=== PATIENT | female | born 1975 | race Caucasian/White ===

== ENCOUNTER 2016-08-01 04:26 | Emergency (ER) | payer BC ==
[2016-08-01 04:34] VITALS: BP 129/83
[2016-08-01] MEDS ORDERED: Tetan/Diph/Pertus SYR(Tdap)* 0.5 ML SYR(BOOSTRIX) use SYR IM ONE (05:08)
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
== END 2016-08-01 05:44 | disposition home or self-care (01) ==
LOC: ED 04:26
DX: S61.212A Laceration without foreign body of right middle finger without damage to nail, initial encounter (principal); W26.0XXA Contact with knife, initial encounter; Y93.9 Activity, unspecified; Y92.9 Unspecified place or not applicable; Y99.9 Unspecified external cause status
CPT/HCPCS: 90471; 90715; 99282

== ENCOUNTER 2016-09-16 18:34 | Emergency (ER) | payer BC ==
[2016-09-16] MEDS ORDERED: Glucagon* 1 MG VIAL IV ONE (19:00)
[2016-09-16] MEDS ORDERED: Midazolam* 1 MG/ML 10 ML VIAL (10 MG) ONE (19:59)
[2016-09-16] MEDS ORDERED: Meperidine SYRINGE* 50 MG/ML ONE (19:59)
[2016-09-16] MEDS ORDERED: Ondansetron INJ* 2 MG/ML VIAL IV ONE (21:53)
[2016-09-16] MEDS ORDERED: Ondansetron INJ* 2 MG/ML VIAL ONE (21:54)
[2016-09-16 22:36] VITALS: BP 111/72
--- NOTE | 2016-09-17 00:51 | CONS ---
CONSULTATION REPORT: DATE OF CONSULT: 09/16/16 REQUESTING PHYSICIAN: Emergency room. INDICATION: Esophageal foreign body. NARRATIVE: Ms. King is a 41-year-old female well known to our service. She has a history of numerous esophageal foreign bodies in the past. I believe this may be her 6th esophageal foreign body in the past year and a half. The patient was eating prime rib approximately an hour and a half to 2 hours ago when she noted that it became stuck at the bottom of her esophagus. She tried to drink some water and it came right back up on her. She now is bringing up her saliva, unable to swallow the saliva. She does have some substernal chest discomfort but not real pain. She denies any new medications. Previous endoscopies in the past have not revealed any obstructions nor rings. It does not appear that there has ever been a stricture or a ring. The patient does not have any teeth and it is felt that her foreign bodies continue to happen because she is edentulous. I have asked her numerous times to try and obtain some new teeth, she states that her jaw is too small to get fake teeth and she does not want them. PAST MEDICAL HISTORY: Significant for chronic headaches and chronic abdominal pain. PAST SURGICAL HISTORY: Surgeries include hysterectomy. FAMILY HISTORY: No esophageal malignancies. SOCIAL HISTORY: She denies any tobacco or alcohol. REVIEW OF SYSTEMS: Twelve systems were reviewed, other than that mentioned in the HPI were unremarkable. PHYSICAL EXAM: Temperature is 156/105, pulse is 81, respiratory rate of 18, O2 sat is 100%, temperature is 98.1. General: Well-appearing young female in no apparent distress. Alert, oriented, pleasant, fluent. HEENT: Mucous membranes are moist without lesions, ulcers, or exudates. Neck is supple. Trachea is midline. Teeth are absent. Heart: Regular rate and rhythm. Lungs : Clear to auscultation. Abdomen: Positive bowel sounds. Soft, nontender, nondistended. No hepatosplenomegaly, masses, rebound, or guarding. Skin is warm and dry. DIAGNOSTIC STUDIES/LAB DATA: None. ASSESSMENT AND PLAN: This is a pleasant 41-year-old female with an esophageal foreign body. She is unable to swallow her own saliva. I will make arrangements for an emergent endoscopy in the emergency room right now. I did have another long discussion with her regarding trying to obtain some fake teeth to try and prevent these episodes from occurring so frequently, I am not sure how compliant she will be with this. CC: Dr. Park; Dr. Cuello * [id number]/[facility] #: [id number] [facility]
--- NOTE | 2016-09-17 12:59 | PRO ---
DATE OF PROCEDURE: 09/16/16 - EMERGENC DEPT PROCEDURE: EGD. INDICATION: Esophageal foreign body. MEDICATIONS GIVEN: 100 mg IV Demerol, 10 mg IV Versed. DESCRIPTION OF PROCEDURE: After the EGD procedure including the risks, benefits , and alternatives not limited to perforation, surgery, and/or were explained to the patient; written consent was then obtained; IV medication was given; and a biteblock was placed between the teeth. Olympus gastroscope was then inserted into the patient's mouth, advanced down the esophagus, into the stomach, and into the distal duodenum. In the esophagus, there was a large amount of retained food. There was lettuce and what appeared to be meat and maybe some corn and potatoes. The patient did regurgitate some of this, but I was able to suction out a majority of it also. There was a large piece that was easily pushed down through the esophagus through the GE junction into the stomach. At that point, the esophagus was widely open and patent. I did try to push most of the corn and leafy material down into the stomach. The stomach did contain a large amount of food already. The pylorus was widely patent and the scope was advanced into the duodenal bulb. The scope was then withdrawn into the stomach. Once it was withdrawn back up into the esophagus, the esophagus again contained some small residual food particles, but no blockages or obstructions. The scope was withdrawn from the patient. She tolerated the procedure well. She was returned to the care of the ED staff. IMPRESSION: 1. Complete upper endoscopy into the duodenum with removal of esophageal foreign body. 2. Esophageal foreign body, status post removal. 3. She does need to follow up with Dr. Park for further discussions regarding what exactly is causing her continued dysphagia. I do wonder about a potentially motility disorder. She may benefit from esophageal manometry. I do not know if she has had biopsies for eosinophilic esophagitis. This can be contemplated also. CC: Dr. Cuello; Dr. Park * [id number]/[facility] #: [id number] [facility]
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
== END 2016-09-16 22:36 | disposition home or self-care (01) ==
LOC: ED 18:34
DX: T18.128A Food in esophagus causing other injury, initial encounter (principal); R10.13 Epigastric pain; X58.XXXA Exposure to other specified factors, initial encounter; Y93.9 Activity, unspecified; Y92.9 Unspecified place or not applicable
CPT/HCPCS: 99284; J2250; J2405

== ENCOUNTER 2017-05-13 18:37 | Emergency (ER) | payer BC ==
[2017-05-13] MEDS ORDERED: Ketorolac INJ* 60 MG/2 ML VIAL IM ONE (19:14)
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
[2017-05-13 20:41] VITALS: BP 107/67
== END 2017-05-13 21:05 | disposition home or self-care (01) ==
LOC: UCEAST 18:37
DX: G43.909 Migraine, unspecified, not intractable, without status migrainosus (principal)
CPT/HCPCS: 96372; 99212; G0463; J1885

== ENCOUNTER 2018-12-01 17:29 | Emergency (ER) | payer BC ==
--- OUTSIDE RECORDS SUMMARY | 2018-12-01 17:34 | XMS REPORT | Continuity of Care Document ---
:1975 External Reference #:[id number] Author Name Miryam Devries Care Team Providers Name Role Phone Kristy Cuello MD Primary Care Physician Unavailable Payers Date Identification Numbers Payment Provider Subscriber Effective: 2010 Policy Number: [id number] Medicaid [place] Expires: 2010 Group Name: 1 1 [address] PayID: [id number] [place] [address] Expires: 2016 Policy Number: [place] Medicaid [place] [id number] PayID: [id number] [address] [address] [place] [address] Policy Number: [id number] [employer]ets [place] PayID: [id number] [address] [address] [place] [address] Expires: 2016 Policy Number: [id number] Medicaid [place] Group Name: 1 1 [address] PayID: [id number] [place] [address] Problems Inactive Problems Provider Date Chronic pain syndrome Kristy Cuello M.D. Onset: 06/15/2010 Inactive: 05/24/2013 Family History Date Family Member(s) Observation Comments Father due to Heart () - at Disease age 40; onset of CAD in his 40s : (age 72 Mother due to Diabetes onset in her 40s Years) Mother due to () Hypertension Mother due to Heart () Disease Mother due to Arthritis () Mother due to () [id number]-Eghlv Mother due to () Hypothyroidism Number of Siblings 4 sisters, 3 with Bfdfj-Nokkv-Lwgqa, all have hypothyroidism, 1 has lupus. 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 25mg Tablets ER 24HR Ketoconazole apply thin film 60gm B35.3 [facility], 11/09/2018 2% Cream to foot twice M.D. daily Imitrex take at first 18tabs [facility] [place], 05/13/2009 100mg Tablets sign of M.D. headache, may repeat once 2 hours later if needed Multi-Day Vitamins 1 po qd Unknown Tablets Aspirin 1 by mouth Unknown 81mg Tablets DR every day ([facility] Summary) Magnesium Oxide 1 by mouth Unknown every day 400(241.3Mg) mg ([facility] Tablets Summary) History Medications Propranolol HCL 2 tab daily 60tabs G43.109 Emma Merino, 10/26/2018 - 10mg M.D. 11/09/2018 Tablets Ondansetron dissolve one 15tabs 787.01 Avery Denney NP 05/02/2014 - 4mg Tablets tablet orally 11/09/2018 Dispers every 8 hours as needed for nausea. Cephalexin one three times 21tabs 686.9 Rachelle Boland, 09/26/2013 - 500mg Tablets daily for 7 days N.P. 10/03/2013 Escitalopram Oxalate 1 PO qd 30tabs 309.9 Kristy 05/24/2013 - 10mg Cotton, M.D. 10/20/2016 Tablets Keflex one by mouth 3 21caps 680.8 Rachelle Boland, 01/06/2012 - 500mg Capsules times daily for N.P. 01/13/2012 7 days Ketoconazole apply once daily 60gm 111.1 Kristy 12/01/2011 - 2% Cream to affected area Elmer Cuello 12/15/2011 Fluticasone Propionate 2 intranasal 1units 461.9 Kristy 04/13/2010 - puffs once daily Elmer Cuello 03/04/2011 50mcg/Act Suspension Azithromycin 2 tabs po on day 6tabs 461.9 Kristy 04/13/2010 - 250mg 1; 1 tab po qd Elmer Cuello 04/23/2010 Tablets on days 2-5 Robitussin ac 1-2 tbs at 4Oz Kristy 03/29/2010 - Solution bedtime as Elmer Cuello 04/13/2010 needed Azithromycin 2 tabs po on day 6tabs Kristy 03/22/2010 - 250mg 1; 1 tab po qd Elmer Cuello 03/28/2010 Tablets on days 2-5 Nortriptyline HCL 1 tablet once 30caps 729.5 Kristy 07/18/2009 - 50mg daily Elmer Cuello 03/04/2011 Capsules Nortriptyline HCL 1 tab po qhs for 100caps 729.5 Kristy 07/04/2009 - 10mg 3 days then 2 Elmer Cuello 07/18/2009 Capsules tabs po qhs for 3 days then 3 tabs po qhs for 3 days then 4 tabs po qhs. Phenergan 1 every 4 hrs Kristy 05/13/2009 - 25mg for nausea or Elmer Cuello 03/04/2011 migraine Tessalon 1 tab po tid prn 30caps 465.9 Kristy 05/13/2009 - 200mg Capsules Elmer Cuello 08/11/2009 Cyclobenzaprine HCL 1 tablet 3 times 90tabs 729.5 Kristy 04/15/2009 - 10mg daily as needed Elmer Cuello 03/04/2011 Tablets Percocet 1 by mouth every 90tabs 729.5 Kristy 04/15/2009 - 5-325mg Tablets 4-6 hours as Elmer Cuello 10/06/2010 needed Vicodin 1 tab po q4h prn 30tabs 729.5 Kristy 04/03/2009 - 5-500mg Tablets Elmer Cuello 04/15/2009 Topamax 1 by mouth once 60tabs Unknown - 100mg Tablets daily 03/04/2011 Omeprazole 1 by mouth every Unknown - 20mg Capsules day 10/20/2016 Atorvastatin Calcium 1 by mouth every Unknown - 80mg day ([facility] 11/09/2018 Tablets Summary) Medications Administered in Office Medication SIG Qnty Indications Ordering Provider Date JOSE Beatty M.D. 02/05/2014 Injection Immunizations CPT Code Status Date Vaccine Lot # [id number] Given 05/24/2013 Flu Vaccine Split Virus Preservative Free For Indiv [id number] Older Vital Signs Date Vital Result Comment 11/09/2018 4:24pm Height 66 inches 5'6" Weight 166.25 lb Heart Rate 74 /min BP Systolic 130 mmHg BP Diastolic 86 mmHg Body Temperature 97.9 F O2 % BldC Oximetry 95 % BMI (Body Mass Index) 26.8 kg/m2 10/26/2018 2:50pm Height 66 inches 5'6" Weight 160.00 lb Heart Rate 75 /min BP Systolic Sitting 122 mmHg BP Diastolic Sitting 83 mmHg Pain Level 7 O2 % BldC Oximetry 95 % BMI (Body Mass Index) 25.8 kg/m2 01/13/2018 4:27pm Height 66 inches 5'6" Weight 169.00 lb Heart Rate 71 /min BP Systolic Sitting 118 mmHg BP Diastolic Sitting 79 mmHg O2 % BldC Oximetry 98 % BMI (Body Mass Index) 27.3 kg/m2 08/11/2017 2:58pm Weight 173.50 lb Heart Rate 65 /min BP Systolic Sitting 118 mmHg BP Diastolic Sitting 70 mmHg O2 % BldC Oximetry 96 % 10/20/2016 3:59pm Weight 168.00 lb Heart Rate 74 /min BP Systolic 104 mmHg BP Diastolic 66 mmHg Body Temperature 96.5 F O2 % BldC Oximetry 95 % 12/27/2014 3:43pm Heart Rate 72 /min BP Systolic Sitting 124 mmHg BP Diastolic Sitting 79 mmHg 05/02/2014 9:40am Height 65 inches 5'5" Weight 179.00 lb Heart Rate 78 /min BP Systolic Sitting 122 mmHg BP Diastolic Sitting 78 mmHg Body Temperature 98.4 F BMI (Body Mass Index) 29.8 kg/m2 02/05/2014 3:04pm Height 65 inches 5'5" Weight 182.25 lb Heart Rate 70 /min BP Systolic Sitting 116 mmHg BP Diastolic Sitting 72 mmHg O2 % BldC Oximetry 96 % BMI (Body Mass Index) 30.3 kg/m2 09/26/2013 3:53pm Weight 190.25 lb Heart Rate 80 /min BP Systolic Sitting 120 mmHg BP Diastolic Sitting 80 mmHg Body Temperature 98.8 F 09/04/2013 4:48pm Weight 188.50 lb Heart Rate 88 /min BP Systolic 130 mmHg BP Diastolic 90 mmHg BP Systolic Standing 120 mmHg BP Diastolic Standing 84 mmHg BP Systolic Lying Down 128 mmHg BP Diastolic Lying Down 74 mmHg Respiratory Rate 18 /min Body Temperature 98.1 F 05/24/2013 10:52am Weight 189.50 lb Heart Rate 72 /min BP Systolic 118 mmHg BP Diastolic 72 mmHg 01/06/2012 10:57am Height 66 inches 5'6" Weight 176.00 lb Heart Rate 62 /min BP Systolic Sitting 122 mmHg BP Diastolic Sitting 70 mmHg Body Temperature 98.7 F BMI (Body Mass Index) 28.4 kg/m2 12/01/2011 1:59pm Height 66 inches 5'6" Weight 179.00 lb Heart Rate 76 /min BP Systolic Sitting 120 mmHg BP Diastolic Sitting 74 mmHg BMI (Body Mass Index) 28.9 kg/m2 10/08/2011 12:56pm Height 66 inches 5'6" Weight 180.50 lb Heart Rate 76 /min BP Systolic Sitting 100 mmHg BP Diastolic Sitting 70 mmHg Body Temperature 98.2 F BMI (Body Mass Index) 29.1 kg/m2 08/13/2011 10:22am Height 66 inches 5'6" Weight 180.00 lb Heart Rate 76 /min BP Systolic Sitting 126 mmHg BP Diastolic Sitting 74 mmHg BMI (Body Mass Index) 29.0 kg/m2 03/04/2011 11:20am Weight 179.00 lb Heart Rate 84 /min BP Systolic Sitting 100 mmHg BP Diastolic Sitting 60 mmHg 06/22/2010 1:32pm Weight 177.00 lb Heart Rate 80 /min BP Systolic 126 mmHg BP Diastolic 82 mmHg 04/13/2010 10:25am Weight 172.00 lb Heart Rate 72 /min BP Systolic 122 mmHg BP Diastolic 60 mmHg Body Temperature 98.9 F 09/23/2009 1:21pm Height 66 inches 5'6" Weight 184.00 lb Heart Rate 94 /min BP Systolic 116 mmHg BP Diastolic 80 mmHg BMI (Body Mass Index) 29.7 kg/m2 08/11/2009 8:40am Height 66 inches 5'6" Weight 183.00 lb Heart Rate 88 /min BP Systolic Sitting 126 mmHg BP Diastolic Sitting 76 mmHg BMI (Body Mass Index) 29.5 kg/m2 07/18/2009 10:01am Height 66 inches 5'6" Weight 185.00 lb Heart Rate 88 /min BP Systolic Sitting 150 mmHg BP Diastolic Sitting 74 mmHg BMI (Body Mass Index) 29.9 kg/m2 07/04/2009 10:01am Height 66 inches 5'6" Weight 186.00 lb Heart Rate 90 /min BP Systolic Sitting 126 mmHg BP Diastolic Sitting 92 mmHg BMI (Body Mass Index) 30.0 kg/m2 06/24/2009 8:51am Height 66 inches 5'6" Weight 186.00 lb Heart Rate 88 /min BP Systolic Sitting 126 mmHg BP Diastolic Sitting 82 mmHg BMI (Body Mass Index) 30.0 kg/m2 05/13/2009 3:14pm Weight 187.00 lb Heart Rate 100 /min BP Systolic Sitting 122 mmHg BP Diastolic Sitting 82 mmHg Body Temperature 98.4 F 04/15/2009 4:17pm Weight 190.50 lb Heart Rate 88 /min BP Systolic Sitting 124 mmHg BP Diastolic Sitting 90 mmHg Respiratory Rate 16 /min Body Temperature 98.5 F 04/03/2009 10:47am Height 66 inches 5'6" Weight 188.25 lb Heart Rate 100 /min BP Systolic Sitting 120 mmHg BP Diastolic Sitting 90 mmHg Body Temperature 98.5 F BMI (Body Mass Index) 30.4 kg/m2 Results Test Date Facility Test Result H/L Range Note CBC Auto Diff 06/26/2015 [facility] White Blood 8.7 10^3/uL N 3.5-10.[address] [place] [address] [phone] Red Blood Count 4.77 10^6/uL N 4.0-5.4 Hemoglobin 14.4 g/dL N 12.0-16.0 Hematocrit 44 % N 35-47 Mean Corpuscular Volume 92 fL N 80-97 Mean Corpuscular Hemoglobin 30 pg N 27-31 Mean Corpuscular HGB Conc 33 g/dL N 31-36 Red Cell Distribution Width 13 % N 10.5-15 Platelet Count 270 10^3/uL N 150-450 Mean Platelet Volume 7 um3 Low 7.4-10.4 Abs Neutrophils 4.5 10^3/uL N 1.5-7.7 Abs Lymphocytes 3.3 10^3/uL N 1.0-4.8 Abs Monocytes 0.6 10^3/uL N 0-0.8 Abs Eosinophils 0.2 10^3/uL N 0-0.6 Abs Basophils 0 10^3/uL N 0-0.2 Abs Nucleated RBC 0 10^3/uL N Granulocyte % 51.6 % N 38-83 Lymphocyte % 38.5 % N 25-47 Monocyte % 6.9 % N 1-9 Eosinophil % 2.5 % N 0-6 Basophil % 0.5 % N 0-2 Nucleated Red Blood Cells % 0 N Urinalysis Profile 06/26/2015 [facility] Urine Color Yellow N [address] [place] [address] [phone] Urine Appearance Clear N Urine Specific [place] 1.008 Low 1.010-1.030 Urine pH 6.0 N 5-9 Urine Urobilinogen Negative N Negative Urine Ketones Negative N Negative Urine Protein Negative N Negative Urine Leukocytes Negative N Negative Urine Blood 2+ Abnormal Negative Urine Nitrite Negative N Negative Urine Bilirubin Negative N Negative Urine Glucose Negative N Negative Urine White Blood Cell Absent N Absent Urine Red Blood Cell 3+(>10/hpf) Abnormal Absent Urine Bacteria Absent N Absent Urine Squamous Epithelial Cell Present Abnormal Absent Comp Metabolic Panel 06/26/2015 [facility] Sodium 136 mmol/L N 133-145 [address] [place] [address] [phone] Potassium 3.4 mmol/L Low 3.5-5.0 Chloride 98 mmol/L Low 101-111 Co2 Carbon Dioxide 32 mmol/L N 22-32 Anion Gap 6 mmol/L N 2-11 Glucose 135 mg/dL High 70-100 Blood Urea Nitrogen 10 mg/dL N 6-24 Creatinine 0.83 mg/dL N 0.51-0.95 BUN/Creatinine Ratio 12.0 N 8-20 Calcium 9.7 mg/dL N 8.6-10.3 Total Protein 7.3 g/dL N 6.4-8.9 Albumin 4.5 g/dL N 3.2-5.2 Globulin 2.8 g/dL N 2-4 Albumin/Globulin Ratio 1.6 N 1-3 Total Bilirubin 0.30 mg/dL N 0.2-1.0 Alkaline Phosphatase 66 U/L N 34-104 Alt 18 U/L N 7-52 Ast 13 U/L N 13-39 Egfr Non- 76.1 N >60 Egfr 97.9 N >60 1 Laboratory test 06/26/2015 [facility] Lipase 24 U/L N 11.0- 82.[address] [place] [address] [phone] Laboratory test 12/24/2014 [facility] Clotest SEE RESULT [address] [place] [address] [phone] CBC Auto Diff 11/15/2014 [facility] White Blood 8.8 10^3/uL N 4.8-10.[address] [place] [address] [phone] Red Blood Count 4.86 10^6/uL N 4.0-5.4 Hemoglobin 14.4 g/dL N 12.0-16.0 Hematocrit 45 % N 35-47 Mean Corpuscular Volume 92 fL N 80-97 Mean Corpuscular Hemoglobin 30 pg N 27-31 Mean Corpuscular HGB Conc 32 g/dL N 31-36 Red Cell Distribution Width 13 % N 10.5-15 Platelet Count 304 10^3/uL N 150-450 Mean Platelet Volume 7 um3 Low 7.4-10.4 Abs Neutrophils 5.7 10^3/uL N 1.5-7.7 Abs Lymphocytes 2.3 10^3/uL N 1.0-4.8 Abs Monocytes 0.6 10^3/uL N 0-0.8 Abs Eosinophils 0.2 10^3/uL N 0-0.6 Abs Basophils 0 10^3/uL N 0-0.2 Abs Nucleated RBC 0.02 10^3/uL N Granulocyte % 64.5 % N 38-83 Lymphocyte % 26.6 % N 25-47 Monocyte % 6.4 % N 1-9 Eosinophil % 2.2 % N 0-6 Basophil % 0.3 % N 0-2 Nucleated Red Blood Cells % 0.3 N Comp Metabolic Panel 11/15/2014 [facility] Sodium 138 mmol/L N 133-[address] [place] [address] [phone] Potassium 4.0 mmol/L N 3.5-5.0 Chloride 100 mmol/L Low 101-111 Co2 Carbon Dioxide 32 mmol/L N 22-32 Anion Gap 6 mmol/L N 2-11 Glucose 90 mg/dL N 70-100 Blood Urea Nitrogen 9 mg/dL N 6-24 Creatinine 0.85 mg/dL N 0.51-0.95 BUN/Creatinine Ratio 10.6 N 8-20 Calcium 9.6 mg/dL N 8.6-10.3 Total Protein 7.8 g/dL N 6.4-8.9 Albumin 4.5 g/dL N 3.2-5.2 Globulin 3.3 g/dL N 2-4 Albumin/Globulin Ratio 1.4 N 1-3 Total Bilirubin 0.50 mg/dL N 0.2-1.0 Alkaline Phosphatase 73 U/L N 34-104 Alt 20 U/L N 7-52 Ast 16 U/L N 13-39 Egfr Non- 74.1 N >60 Egfr 95.3 N >60 3 Laboratory test 11/15/2014 [facility] Troponin-I (TnI) 0.01 ng/ mL N <0.03 [address] [place], [place] [id number] [phone] Rubella Igg Titer 02/05/2014 [facility] Rubella IgG Positive N [address] Antibody [place], [place] [id number] [phone] Rubella IgG Antibody Index 1.5 N 6 Rubeola Measles 02/05/2014 [facility] Rubeola (Measles) Positive N 7 Igg AB [address] IgG Antibody [place], [place] [id number] [phone] Rubeola IgG Antibody Index 6.1 N 8 Mumps Igg 02/05/2014 [facility] Mumps Virus IgG Antibody Positive N [address] [place], [place] [id number] [phone] Mumps IgG Antibody Index 3.2 N 10 Laboratory test 06/26/2013 [facility] Urine Negative Negative [address] [place] [address] [phone] CBC Auto Diff 09/28/2012 [facility] White Blood 9.5 10^3/uL 4.8-10.[address] [place] [address] [phone] Red Blood Count 4.49 10^6/uL 4.0-5.4 Hemoglobin 13.2 g/dL 12.0-16.0 Hematocrit 41 % 35-47 Mean Corpuscular Volume 91 fL 80-97 Mean Corpuscular Hemoglobin 29 pg 27-31 Mean Corpuscular HGB Conc 32 g/dL 31-36 Red Cell Distribution Width 13 % 10.5-15 Platelet Count 271 10^3/uL 150-450 Mean Platelet Volume 7 um3 Low 7.4-10.4 Abs Neutrophils 4.6 10^3/uL 1.5-7.7 Abs Lymphocytes 3.9 10^3/uL 1.0-4.8 Abs Monocytes 0.6 10^3/uL 0-0.8 Abs Eosinophils 0.2 10^3/uL 0-0.6 Abs Basophils 0.2 10^3/uL 0-0.2 Abs Nucleated RBC 0 10^3/uL Granulocyte % 48.6 % 38-83 Lymphocyte % 40.7 % 25-47 Monocyte % 6.6 % 1-9 Eosinophil % 2.2 % 0-6 Basophil % 1.9 % 0-2 Nucleated Red Blood Cells % 0 Urinalysis 09/28/2012 [facility] Urine Color Yellow [address] [place] [address] [phone] Urine Appearance Clear Urine Specific [place] 1.019 1.010-1.030 Urine Esterase Negative Negative Urine Nitrate Negative Negative Urine Urobilinogen Negative E.U./dL Negative Urine Protein Negative mg/dL Negative Urine pH 6.0 5-9 Urine Blood Negative Negative Urine Ketones Negative mg/dL Negative Urine Bilirubin Negative Negative Urine Glucose Negative mg/dL Negative Laboratory test finding 09/28/2012 [facility] Inr 0.91 0.87- 0.97 [address] [place] [address] [phone] Activated Partial Thrombo Time 31.8 seconds 22.18-37.18 Comp Metabolic Panel 09/28/2012 [facility] Sodium 136 mmol/L 133-145 [address] [place] [address] [phone] Potassium 3.6 mmol/L 3.5-5.0 Chloride 103 mmol/L 101-111 Co2 Carbon Dioxide 29.0 mmol/L 22-32 Anion Gap 4.0 mmol/L 2-11 Glucose 108 mg/dL High 70-100 Blood Urea Nitrogen 8 mg/dL 6-24 Creatinine 0.60 mg/dL 0.50-1.40 BUN/Creatinine Ratio 13.3 8-20 Calcium 9.5 mg/dL 8.1-9.9 Total Protein 7.5 g/dL 6.2-8.1 Albumin 3.7 g/dL 3.6-5.4 Globulin 3.8 g/dL 2-4 Albumin/Globulin Ratio 1.0 1-3 Total Bilirubin 0.4 mg/dL 0.4-1.5 Alkaline Phosphatase 74 U/L 30-110 Alt 26 U/L 14-54 Ast 18 U/L 12-42 Egfr Non- 111.9 >60 Egfr 143.9 >60 12 Laboratory test finding 09/28/2012 [facility] Lipase 28 U/L 22-[address] [place] [address] [phone] C Reactive Protein 1.5 mg/dL High Less than 0.5 CBC Auto Diff 09/12/2012 [facility] White Blood 9.2 10^3/uL 4.8-10.[address] [place] [address] [phone] Red Blood Count 4.56 10^6/uL 4.0-5.4 Hemoglobin 13.6 g/dL 12.0-16.0 Hematocrit 41 % 35-47 Mean Corpuscular Volume 90 fL 80-97 Mean Corpuscular Hemoglobin 30 pg 27-31 Mean Corpuscular HGB Conc 33 g/dL 31-36 Red Cell Distribution Width 13 % 10.5-15 Platelet Count 252 10^3/uL 150-450 Mean Platelet Volume 6 um3 Low 7.4-10.4 Abs Neutrophils 5.2 10^3/uL 1.5-7.7 Abs Lymphocytes 3.1 10^3/uL 1.0-4.8 Abs Monocytes 0.6 10^3/uL 0-0.8 Abs Eosinophils 0.2 10^3/uL 0-0.6 Abs Basophils 0 10^3/uL 0-0.2 Abs Nucleated RBC 0 10^3/uL Granulocyte % 56.8 % 38-83 Lymphocyte % 34.1 % 25-47 Monocyte % 6.8 % 1-9 Eosinophil % 2.0 % 0-6 Basophil % 0.3 % 0-2 Nucleated Red Blood Cells % 0 Comp Metabolic Panel 09/12/2012 [facility] Sodium 139 mmol/L 133-145 [address] [place] [address] [phone] Potassium 3.9 mmol/L 3.5-5.0 Chloride 102 mmol/L 101-111 Co2 Carbon Dioxide 31.0 mmol/L 22-32 Anion Gap 6.0 mmol/L 2-11 Glucose 93 mg/dL 70-100 Blood Urea Nitrogen 5 mg/dL Low 6-24 Creatinine 0.70 mg/dL 0.50-1.40 BUN/Creatinine Ratio 7.1 Low 8-20 Calcium 9.3 mg/dL 8.1-9.9 Total Protein 6.8 g/dL 6.2-8.1 Albumin 3.7 g/dL 3.6-5.4 Globulin 3.1 g/dL 2-4 Albumin/Globulin Ratio 1.2 1-3 Total Bilirubin 0.6 mg/dL 0.4-1.5 Alkaline Phosphatase 73 U/L 30-110 Alt 33 U/L 14-54 Ast 21 U/L 12-42 Egfr Non- 93.6 >60 Egfr 120.4 >60 13 Laboratory test finding 09/12/2012 [facility] Lipase 24 U/L 22-[address] [place] [phone] C Reactive Protein 1.6 mg/dL High Less than 0.5 Urinalysis 09/12/2012 [facility] Urine Color Yellow [address] [place] [address] [phone] Urine Appearance Clear Urine Specific [place] 1.016 1.010-1.030 Urine Esterase Negative Negative Urine Nitrate Negative Negative Urine Urobilinogen Negative E.U./dL Negative Urine Protein Negative mg/dL Negative Urine pH 6.0 5-9 Urine Blood Negative Negative Urine Ketones Negative mg/dL Negative Urine Bilirubin Negative Negative Urine Glucose Negative mg/dL Negative Vitamin B12 And 11/24/2011 [facility] Folic Acid 11.7 NG/ML See Below 14, 15 Folate Serum [address] [place] [address] [phone] Laboratory test 11/24/2011 [facility] Ferritin 24 NG/ML 11.0- 307 finding [address] [place] [address] [phone] Vitamin B12 277 pg/mL 180-914 Iron & Iron Binding 11/24/2011 [facility] Iron Total 82 g/dL 28-170 Capacity [address] [place] [address] [phone] Unsaturated Iron Binding 280 g/dL Total Iron Binding Capacity 362 g/dL 250-450 % Iron Saturation 23 % 15-55 Laboratory test 10/08/2011 [facility] TSH 2.30 MIU/ML 0.34- 5.60 finding [address] [place] [address] [phone] Laboratory test 06/19/2011 [facility] Troponin-I 0.01 NG/ML 0 -0.06 16 finding [address] [place] [address] [phone] Comp Metabolic 06/18/2011 [facility] Sodium 140 mmol/L 135- 145 Panel [address] [place] [address] [phone] Potassium 3.8 mmol/L 3.5-5.0 Chloride 100 mmol/L Low 101-111 Co2 (Carbon Dioxide) 32.0 mmol/L 22-32 Anion Gap 8.0 mmol/L 2-11 17 Glucose 92 mg/dL 70-100 BUN 8 mg/dL 6-24 Creatinine 1.0 mg/dL 0.50-1.40 One Over Creatinine 1.00 BUN/Creatinine Ratio 8.0 8-20 Calcium 9.2 mg/dL 8.1-9.9 Total Protein 6.2 GM/DL 6.2-8.1 Albumin 3.8 GM/DL 3.6-5.4 Globulin 2.4 GM/DL 2-4 Albumin/Globulin Ratio 1.6 1-3 Bilirubin Total 0.4 mg/dL 0.4-1.5 18 Alkaline Phosphatase 87 U/L 30-110 Alt (SGPT) 20 U/L 14-54 Ast (Sgot) 21 U/L 12-42 eGFR Non- 62.7 > 60 eGFR 80.7 > 60 19 Laboratory test 06/18/2011 [facility] CPK (Creatine 105 U/L 0 -170 finding [address] [facility] Kinase) [place] [address] [phone] CKMB 06/18/2011 [facility] CKMB In NG/ML 1.7 NG/ML 0.3-4.[address] [place] [address] [phone] % CKMB 2 %MB 0-9 20 Laboratory test 06/18/2011 [facility] Troponin-I 0.01 NG/ML 0 -0.06 [address] [place] [address] [phone] Laboratory test 06/18/2011 [facility] (HCG) NEGATIVE Negative [address] [place] [address] [phone] CBC Auto Diff 06/18/2011 [facility] White Blood 9.6 CUMM 4.8- 10.[address] [place] [address] [phone] Red Cell Count 4.37 CUMM 4.2-5.4 Hemoglobin 13.5 g/dL 12.0-16.0 Hematocrit 39 % 35-47 Mean Corpuscular Volume 88 um3 79-97 Mean Corpuscular Hemoglob 31 pg 27-31 Mean Corpuscular HGB Cone 35 g/dL 32-36 Redcell Distribution WDTH 12 % 10.5-15 Platelet Count 302 CUMM 150-450 Mean Platelet Volume 6.9 um3 Low 7.4-10.4 Gran % 59.5 % 38-83 Lymph % 32.0 % 25-47 Mononuclear % 5.8 % 1-9 Eosinophil % 2.3 % 0-6 Basophil % 0.4 % 0-2 Abs Lymphs 3.1 1.0-4.8 Abs Mononuclear 0.6 0-0.8 Absolute Neutrophil Count 5.7 1.5-7.7 Abs Eosinophils 0.2 0-0.6 Abs Basophils 0 0-0.2 Urinalysis 04/09/2011 [facility] Ua Color YELLOW Yellow [address] [place] [address] [phone] Appearance-Urine CLEAR Clear Specific [place]-Ur 1.008 Low 1.010-1.030 Esterase-Urine NEGATIVE Negative Nitrite NEGATIVE Negative [id number] NEGATIVE Negative Protein-Urine NEGATIVE Negative PH-Urine 6.5 5-9 Blood-Urine NEGATIVE Negative Ketones-Urine NEGATIVE Negative Bilirubin-Ur NEGATIVE Negative Glucose-Urine NEGATIVE Negative CBC Auto Diff 04/09/2011 [facility] White Blood 8.8 CUMM 4.8- 10.[address] Count [place], [place] [id number] [phone] Red Cell Count 4.39 CUMM 4.2-5.4 Hemoglobin 13.4 g/dL 12.0-16.0 Hematocrit 39 % 35-47 Mean Corpuscular Volume 90 um3 79-97 Mean Corpuscular Hemoglob 31 pg 27-31 Mean Corpuscular HGB Cone 34 g/dL 32-36 Redcell Distribution WDTH 13 % 10.5-15 Platelet Count 288 CUMM 150-450 Mean Platelet Volume 6.5 um3 Low 7.4-10.4 Gran % 58.1 % 38-83 Lymph % 33.2 % 25-47 Mononuclear % 6.0 % 1-9 Eosinophil % 2.4 % 0-6 Basophil % 0.3 % 0-2 Abs Lymphs 2.9 1.0-4.8 Abs Mononuclear 0.5 0-0.8 Absolute Neutrophil Count 5.1 1.5-7.7 Abs Eosinophils 0.2 0-0.6 Abs Basophils 0 0-0.2 Comp Metabolic Panel 04/09/2011 [facility] Sodium 140 mmol/L 135-[address] [place], [place] [id number] [phone] Potassium 4.0 mmol/L 3.5-5.0 Chloride 101 mmol/L 101-111 Co2 (Carbon Dioxide) 33.0 mmol/L High 22-32 Anion Gap 6.0 mmol/L 2-11 23 Glucose 107 mg/dL High 70-100 BUN 9 mg/dL 6-24 Creatinine 1.0 mg/dL 0.50-1.40 One Over Creatinine 1.00 BUN/Creatinine Ratio 9.0 8-20 Calcium 9.1 mg/dL 8.1-9.9 Total Protein 7.3 GM/DL 6.2-8.1 Albumin 3.9 GM/DL 3.6-5.4 Globulin 3.4 GM/DL 2-4 Albumin/Globulin Ratio 1.1 1-3 Bilirubin Total 0.3 mg/dL Low 0.4-1.5 24 Alkaline Phosphatase 87 U/L 30-110 Alt (SGPT) 20 U/L 14-54 Ast (Sgot) 18 U/L 12-42 eGFR Non- 62.7 > 60 eGFR 80.7 > 60 25 Laboratory test finding 04/09/[address] [facility] [facility] Lipase 33 U/L 22-51 [address] [place] [address] [phone] C Reactive Protein 0.9 mg/dL High Less Than 0.5 CBC Auto Diff 02/19/2011 [facility] White Blood 9.2 CUMM 4.8- 10.[address] [place] [address] [phone] Red Cell Count 4.27 CUMM 4.2-5.4 Hemoglobin 12.8 g/dL 12.0-16.0 Hematocrit 38 % 35-47 Mean Corpuscular Volume 89 um3 79-97 Mean Corpuscular Hemoglob 30 pg 27-31 Mean Corpuscular HGB Cone 34 g/dL 32-36 Redcell Distribution WDTH 13 % 10.5-15 Platelet Count 290 CUMM 150-450 Mean Platelet Volume 7.0 um3 Low 7.4-10.4 Gran % 56.3 % 38-83 Lymph % 34.0 % 25-47 Mononuclear % 6.6 % 1-9 Eosinophil % 2.8 % 0-6 Basophil % 0.3 % 0-2 Abs Lymphs 3.1 1.0-4.8 Abs Mononuclear 0.6 0-0.8 Absolute Neutrophil Count 5.2 1.5-7.7 Abs Eosinophils 0.3 0-0.6 Abs Basophils 0 0-0.2 Laboratory test finding 02/19/2011 [facility] Lipase 33 U/L 22-51 [address] [place] [address] [phone] D Dimer Quantitative < 200 NG/ML Less Than 230 26 Comp Metabolic Panel 02/19/2011 [facility] Sodium 139 mmol/L 135-145 [address] [place] [address] [phone] Potassium 3.7 mmol/L 3.5-5.0 Chloride 101 mmol/L 101-111 Co2 (Carbon Dioxide) 29.0 mmol/L 22-32 Anion Gap 9.0 mmol/L 2-11 27 Glucose 101 mg/dL High 70-100 BUN 5 mg/dL Low 6-24 Creatinine 0.7 mg/dL 0.50-1.40 One Over Creatinine 1.42 BUN/Creatinine Ratio 7.1 Low 8-20 Calcium 9.2 mg/dL 8.1-9.9 Total Protein 7.0 GM/DL 6.2-8.1 Albumin 3.8 GM/DL 3.6-5.4 Globulin 3.2 GM/DL 2-4 Albumin/Globulin Ratio 1.2 1-3 Bilirubin Total 0.3 mg/dL Low 0.4-1.5 28 Alkaline Phosphatase 85 U/L 30-110 Alt (SGPT) 23 U/L 14-54 Ast (Sgot) 23 U/L 12-42 eGFR Non- 94.7 > 60 eGFR 121.8 > 60 29 Urinalysis 02/19/2011 [facility] Ua Color YELLOW Yellow [address] [place] [address] [phone] Appearance-Urine CLEAR Clear Specific [place]-Ur 1.014 1.010-1.030 Esterase-Urine NEGATIVE Negative Nitrite NEGATIVE Negative [id number] NEGATIVE Negative Protein-Urine NEGATIVE Negative PH-Urine 5.0 5-9 Blood-Urine NEGATIVE Negative Ketones-Urine NEGATIVE Negative Bilirubin-Ur NEGATIVE Negative Glucose-Urine NEGATIVE Negative Drug Abuse 06/22/2010 [facility] Urine Alcohol Negative mg/dL Cutoff: 30 20 Urine [address] [place] [address] [phone] Urine Ampetamines Negative ng/mL () 30 Urine Barbiturates Negative ng/mL () 31 Urine Benzodiazepines Negative ng/mL () 32 Urine Cocaine Negative ng/mL () 33 Urine Methadone Negative ng/mL () 34 Urine Opiates Negative ng/mL () 35 Urine Phencyclidine Negative ng/mL Cutoff: 25 Urine Propoxyphene Negative ng/mL () 36 Urine Tetrahydrocannabinol Negative ng/mL Cutoff: 20 37 Comp Metabolic Panel 06/22/2010 [facility] Sodium 137 mmol/L 135-145 [address] [place] [address] [phone] Potassium 4.2 mmol/L 3.5-5.0 Chloride 100 mmol/L Low 101-111 Co2 (Carbon Dioxide) 29.0 mmol/L 22-32 Anion Gap 8.0 mmol/L 2-11 38 Glucose 89 mg/dL 70-100 BUN 7 mg/dL 6-24 Creatinine 0.60 mg/dL 0.50-1.40 One Over Creatinine 1.60 BUN/Creatinine Ratio 11.7 8-20 Calcium 9.5 mg/dL 8.1-9.9 Total Protein 6.9 GM/DL 6.2-8.1 Albumin 4.1 GM/DL 3.6-5.4 Globulin 2.8 GM/DL 2-4 Albumin/Globulin Ratio 1.5 1-3 Bilirubin Total 0.5 mg/dL 0.4-1.5 39 Alkaline Phosphatase 83 U/L 30-110 Alt (SGPT) 32 U/L 14-54 Ast (Sgot) 21 U/L 12-42 eGFR Non- 120.9 > 60 eGFR 146.3 > 60 40 Laboratory test 06/22/2010 [facility] Vitamin B12 259 pg/mL 180-914 finding [address] [place] [address] [phone] TSH 1.28 MIU/ML 0.34-5.60 FSH 49.21 MIU/ML 41 Laboratory test 09/23/2009 [facility] Troponin-I (TnI) 0 NG/ML 42 finding [address] [place] [address] [phone] CK For CKMB 55 U/L 0-170 43 D Dimer Quantitative < 200 Less Than 230 CMP Panel Stat 09/23/2009 [facility] Sodium 138 mmol/L 135- 145 [address] [place] [address] [phone] Potassium 3.7 mmol/L 3.5-5.0 Chloride 105 mmol/L 101-111 Co2 (Carbon Dioxide) 29.0 mmol/L 22-32 Anion Gap 4.0 mmol/L 2-11 44 Glucose 118 mg/dL High 70-100 45 BUN 7 mg/dL 6-24 Creatinine 0.70 mg/dL 0.50-1.40 One Over Creatinine 1.40 BUN/Creatinine Ratio 10.0 8-20 Calcium 9.3 mg/dL 8.1-9.9 46 Total Protein 6.7 GM/DL 6.2-8.1 Albumin 3.6 GM/DL 3.6-5.4 Globulin 3.1 GM/DL 2-4 Albumin/Globulin Ratio 1.2 1-3 Bilirubin Total 0.4 mg/dL 0.4-1.5 47 Alkaline Phosphatase 77 U/L 30-110 Alt (SGPT) 25 U/L 14-54 Ast (Sgot) 16 U/L 12-42 eGFR Non- 101.2 > 60 eGFR 122.5 > 60 48 CBC With 09/23/2009 [facility] White Blood 7.1 CUMM 4.8-10.8 Electronic Diff [address] [place] [address] [phone] Red Cell Count 4.36 CUMM 4.2-5.4 Hemoglobin 13.2 g/dL 12.0-16.0 Hematocrit 39 % 35-47 Mean Corpuscular Volume 90 um3 79-97 Mean Corpuscular Hemoglob 30 pg 27-31 Mean Corpuscular HGB Cone 34 g/dL 32-36 Redcell Distribution WDTH 13 % 10.5-15 Platelet Count 303 CUMM 150-450 Mean Platelet Volume 6.3 um3 Low 7.4-10.4 Gran % 66.9 % 38-83 Lymph % 24.5 % Low 25-47 Mononuclear % 6.4 % 1-9 Eosinophil % 2.0 % 0-6 Basophil % 0.2 % 0-2 Abs Lymphs 1.7 1.0-4.8 Abs Mononuclear 0.5 0-0.8 Absolute Neutrophil Count 4.7 1.5-7.7 Abs Eosinophils 0.1 0-0.6 Abs Basophils 0 0-0.2 Urinalysis 09/23/2009 [facility] Ua Color YELLOW Yellow [address] [place] [address] [phone] Appearance-Urine CLEAR Clear Specific [place]-Ur 1.016 1.010-1.030 Esterase-Urine NEGATIVE Negative Nitrite NEGATIVE Negative [id number] NEGATIVE Negative Protein-Urine NEGATIVE Negative PH-Urine 7.0 5-9 Blood-Urine NEGATIVE Negative Ketones-Urine NEGATIVE Negative Bilirubin-Ur NEGATIVE Negative Glucose-Urine NEGATIVE Negative 1 Because ethnic data is not always readily available, this report includes an eGFR for both -Americans and non- Americans. The National Kidney Disease Education Program (NKDEP) does not endorse the use of the MDRD equation for patients that are not between the ages of 18 and 70, are , have extremes of body size, muscle mass, or nutritional status, or are non- or non-. According to the National Kidney Foundation, irrespective of diagnosis, the stage of the disease is based on the level of kidney function: Stage Description GFR(mL/min/1.73 m(2)) 1 Kidney damage with normal or decreased GFR 90 2 Kidney damage with mild decrease in GFR 60-89 3 Moderate decrease in GFR 30-59 4 Severe decrease in GFR 15-29 5 Kidney failure <15 (or dialysis) 2 SEE RESULT BELOW Name: GA KING : [address]: Jose Park MD Acct: [id number] Unit: [id number] AGE: 39 Location: ENDO Re12/24/14 SEX: F Status: REG REF SPEC: [id number] VINCE: 12/24/14-[address] [facility] [address]: Jose Park MD REQ: [id number] RECD: 12/24/14-1222 STATUS: MARTINE HARO DR: Kristy Cuello MD _ SOURCE: GAS ANTRUM SPDESC: ORDERED: Clotest Procedure Result Verified Site Clotest Final 12/25/14728 ML Clotest Negative * ML - MAIN LAB ([facility]) . END OF REPORT * ML=Testing performed at Main Lab DEPARTMENT OF PATHOLOGY, [address] [place] [address] Joe Alva M.D. Director [facility] # [id number] 3 Because ethnic data is not always readily available, this report includes an eGFR for both -Americans and non- Americans. The National Kidney Disease Education Program (NKDEP) does not endorse the use of the MDRD equation for patients that are not between the ages of 18 and 70, are , have extremes of body size, muscle mass, or nutritional status, or are non- or non-. According to the National Kidney Foundation, irrespective of diagnosis, the stage of the disease is based on the level of kidney function: Stage Description GFR(mL/min/1.73 m(2)) 1 Kidney damage with normal or decreased GFR 90 2 Kidney damage with mild decrease in GFR 60-89 3 Moderate decrease in GFR 30-59 4 Severe decrease in GFR 15-29 5 Kidney failure <15 (or dialysis) 4 Reference Range and Interpretation: TnI (ng/mL) Interpretation Less Than 0.03 ng/mL Not supportive of diagnosis of AR 0.03 - 0.50 ng/mL Indeterminate: suggest serial studies if clinically indicated. Greater than 0.5 ng/mL Consistent with diagnosis of AR 5 Results suggest response to immunization or prior exposure to the virus. -- REFERENCE VALUE -- Vaccinated: Positive (>=1.0 AI) Unvaccinated: Negative (<=0.7 AI) 6 Test Performed by: [place] [address] [employer]: Deo Miller III, M.D. 7 Results suggest response to immunization or prior exposure to the virus. -- REFERENCE VALUE -- Vaccinated: Positive (>=1.1 AI) Unvaccinated: Negative (<=0.8 AI) 8 Test Performed by: [place] [address] [employer]: Deo Miller III, M.D. 9 Results suggest response to immunization or prior exposure to the virus. -- REFERENCE VALUE -- Vaccinated: Positive (>=1.1 AI) Unvaccinated: Negative (<=0.8 AI) 10 Test Performed by: [place] [address] [employer]: Deo Miller III, M.D. 11 If is still suspected, please repeat test after 48 to 72 hours. This test detects intact HCG only and is indicated for the early detection of . 12 Because ethnic data is not always readily available, this report includes an eGFR for both -Americans and non- Americans. The National Kidney Disease Education Program (NKDEP) does not endorse the use of the MDRD equation for patients that are not between the ages of 18 and 70, are , have extremes of body size, muscle mass, or nutritional status, or are non- or non-. According to the National Kidney Foundation, irrespective of diagnosis, the stage of the disease is based on the level of kidney function: Stage Description GFR(mL/min/1.73 m(2)) 1 Kidney damage with normal or decreased GFR 90 2 Kidney damage with mild decrease in GFR 60-89 3 Moderate decrease in GFR 30-59 4 Severe decrease in GFR 15-29 5 Kidney failure <15 (or dialysis) 13 Because ethnic data is not always readily available, this report includes an eGFR for both -Americans and non- Americans. The National Kidney Disease Education Program (NKDEP) does not endorse the use of the MDRD equation for patients that are not between the ages of 18 and 70, are , have extremes of body size, muscle mass, or nutritional status, or are non- or non-. According to the National Kidney Foundation, irrespective of diagnosis, the stage of the disease is based on the level of kidney function: Stage Description GFR(mL/min/1.73 m(2)) 1 Kidney damage with normal or decreased GFR 90 2 Kidney damage with mild decrease in GFR 60-89 3 Moderate decrease in GFR 30-59 4 Severe decrease in GFR 15-29 5 Kidney failure <15 (or dialysis) 14 A MINOR SPELLING MISMATCH OR NICKNAME WAS USED ON THE SPECIMEN CONTAINER AND/OR REQUISITION. 15 Please note: New reference range, effective 06/03/11 NORMAL REFERENCE RANGE: GREATER THAN 4.1 NG/ML 16 New Reference Range and Interpretation effective 03/16/2002 TnI (ng/ml) INTERPRETATION Less Than 0.06 ng/mL NOT SUPPORTIVE OF DIAGNOSIS OF AR 0.06 - 0.50 ng/ml INDETERMINATE: SUGGEST SERIAL STUDIES IF CLINICALLY INDICATED. Greater than 0.5 ng/mL CONSISTENT WITH DIAGNOSIS OF AR . 17 Anion gap measurement may be of limited value in the presence of any alkalosis, especially in a combined acid base disorder. . 18 A metabolite of Naproxen, O-desmethylnaproxen, has been shown to interfere with the Jendrassik-Jaya method for measuring total bilirubin. Samples from patients who have taken Naproxen have shown spurious elevation in total bilirubin levels. 19 Because ethnic data is not always readily available, this report includes an eGFR for both -Americans and non- Americans. The National Kidney Disease Education Program (NKDEP) does not endorse the use of the MDRD equation for patients that are not between the ages of 18 and 70, are , have extremes of body size, muscle mass, or nutritional status, or are non- or non-. According to the National Kidney Foundation, irrespective of diagnosis, the stage of the disease is based on the level of kidney function: Stage Description GFR(mL/min/1.73 m(2)) 1 Kidney damage with normal or decreased GFR 90 2 Kidney damage with mild decrease in GFR 60-89 3 Moderate decrease in GFR 30-59 4 Severe decrease in GFR 15-29 5 Kidney failure <15 (or dialysis) 20 INTERPRETATION %CK-MB < 5% NOT SUPPORTIVE OF DIAGNOSIS OF AR 5 - <10% INDETERMINATE; SUGGEST SERIAL STUDIES IF CLINICALLY INDICATED 10% OR > CONSISTENT WITH DIAGNOSIS OF AR . 21 New Reference Range and Interpretation effective 03/16/2002 TnI (ng/ml) INTERPRETATION Less Than 0.06 ng/mL NOT SUPPORTIVE OF DIAGNOSIS OF AR 0.06 - 0.50 ng/ml INDETERMINATE: SUGGEST SERIAL STUDIES IF CLINICALLY INDICATED. Greater than 0.5 ng/mL CONSISTENT WITH DIAGNOSIS OF AR . 22 If is still suspected, please repeat test after 48 to 72 hours. . This test detects intact HCG only and is indicated for the early detection of . 23 Anion gap measurement may be of limited value in the presence of any alkalosis, especially in a combined acid base disorder. . 24 A metabolite of Naproxen, O-desmethylnaproxen, has been shown to interfere with the Jendrassik-Jaya method for measuring total bilirubin. Samples from patients who have taken Naproxen have shown spurious elevation in total bilirubin levels. 25 Because ethnic data is not always readily available, this report includes an eGFR for both -Americans and non- Americans. The National Kidney Disease Education Program (NKDEP) does not endorse the use of the MDRD equation for patients that are not between the ages of 18 and 70, are , have extremes of body size, muscle mass, or nutritional status, or are non- or non-. According to the National Kidney Foundation, irrespective of diagnosis, the stage of the disease is based on the level of kidney function: Stage Description GFR(mL/min/1.73 m(2)) 1 Kidney damage with normal or decreased GFR 90 2 Kidney damage with mild decrease in GFR 60-89 3 Moderate decrease in GFR 30-59 4 Severe decrease in GFR 15-29 5 Kidney failure <15 (or dialysis) 26 Please note: The following may produce a false positive D Dimer test: - Rheumatoid factor greater than 1400 IU/ml - Plasma hemoglobin greater than 0.5 gm/dl - Bilirubin greater than 18 mg/dl - Triglycerides greater than 1327 mg/dl - FDP greater than 10 ug/ml . 27 Anion gap measurement may be of limited value in the presence of any alkalosis, especially in a combined acid base disorder. . 28 A metabolite of Naproxen, O-desmethylnaproxen, has been shown to interfere with the [place]-Jaya method for measuring total bilirubin. Samples from patients who have taken Naproxen have shown spurious elevation in total bilirubin levels. 29 Because ethnic data is not always readily available, this report includes an eGFR for both -Americans and non- Americans. The National Kidney Disease Education Program (NKDEP) does not endorse the use of the MDRD equation for patients that are not between the ages of 18 and 70, are , have extremes of body size, muscle mass, or nutritional status, or are non- or non-. According to the National Kidney Foundation, irrespective of diagnosis, the stage of the disease is based on the level of kidney function: Stage Description GFR(mL/min/1.73 m(2)) 1 Kidney damage with normal or decreased GFR 90 2 Kidney damage with mild decrease in GFR 60-89 3 Moderate decrease in GFR 30-59 4 Severe decrease in GFR 15-29 5 Kidney failure <15 (or dialysis) 30 -- REFERENCE VALUE -- Cutoff: 500 31 -- REFERENCE VALUE -- Cutoff: 200 32 -- REFERENCE VALUE -- Cutoff: 200 33 -- REFERENCE VALUE -- Cutoff: 300 34 -- REFERENCE VALUE -- Cutoff: 300 35 -- REFERENCE VALUE -- Cutoff: 300 36 -- REFERENCE VALUE -- Cutoff: 300 37 This report is intended for use in clinical monitoring or management of patients. It is not intended for use in employment-related testing. Test Performed by: [facility] [address] [place] [id number] [employer]: Deo Miller III, M.D. 38 Anion gap measurement may be of limited value in the presence of any alkalosis, especially in a combined acid base disorder. . 39 A metabolite of Naproxen, O-desmethylnaproxen, has been shown to interfere with the Jendrassik-[place] method for measuring total bilirubin. Samples from patients who have taken Naproxen have shown spurious elevation in total bilirubin levels. 40 Because ethnic data is not always readily available, this report includes an eGFR for both -Americans and non- Americans. The National Kidney Disease Education Program (NKDEP) does not endorse the use of the MDRD equation for patients that are not between the ages of 18 and 70, are , have extremes of body size, muscle mass, or nutritional status, or are non- or non-. According to the National Kidney Foundation, irrespective of diagnosis, the stage of the disease is based on the level of kidney function: Stage Description GFR(mL/min/1.73 m(2)) 1 Kidney damage with normal or decreased GFR 90 2 Kidney damage with mild decrease in GFR 60-89 3 Moderate decrease in GFR 30-59 4 Severe decrease in GFR 15-29 5 Kidney failure <15 (or dialysis) 41 NORMAL RANGE MALES 1 - 20 NORMALLY MENSTRUATING FEMALES - Follicular Phase 3 - 9 - Mid-Cycle Peak 4 - 23 - Luteal Phase 1 - 6 POSTMENOPAUSAL FEMALES 16 - 114 . 42 New Reference Range and Interpretation effective 03/16/2002 TnI (ng/ml) INTERPRETATION Less Than 0.06 ng/mL NOT SUPPORTIVE OF DIAGNOSIS OF AR 0.06 - 0.50 ng/ml INDETERMINATE: SUGGEST SERIAL STUDIES IF CLINICALLY INDICATED. Greater than 0.5 ng/mL CONSISTENT WITH DIAGNOSIS OF AR . 43 TOTAL CK LESS THAN 150 U/L. CK-MB WILL NOT BE RUN WITHOUT SPECIAL REQUEST TO CHEMISTRY DEPARTMENT. 44 Anion gap measurement may be of limited value in the presence of any alkalosis, especially in a combined acid base disorder. . 45 Note change in reference range as of 02/01/08. The change was based on recommendations from the [place] [employer]. 46 Please note change in reference range effective 07 . 47 A metabolite of Naproxen, O-desmethylnaproxen, has been shown to interfere with the Jendrassik-Jaya method for measuring total bilirubin. Samples from patients who have taken Naproxen have shown spurious elevation in total bilirubin levels. 48 Because ethnic data is not always readily available, this report includes an eGFR for both -Americans and non- Americans. The National Kidney Disease Education Program (NKDEP) does not endorse the use of the MDRD equation for patients that are not between the ages of 18 and 70, are , have extremes of body size, muscle mass, or nutritional status, or are non- or non-. According to the National Kidney Foundation, irrespective of diagnosis, the stage of the disease is based on the level of kidney function: Stage Description GFR(mL/min/1.73 m(2)) 1 Kidney damage with normal or decreased GFR 90 2 Kidney damage with mild decrease in GFR 60-89 3 Moderate decrease in GFR 30-59 4 Severe decrease in GFR 15-29 5 Kidney failure <15 (or dialysis) Procedures Date Code Description Status 09/04/2013 46319 EKG Tracing & Interpretation Completed 01/03/2012 11514 Polysomnography Sleep Staging 4+ Parameters W/Cpap Completed 12/01/2011 01263 Polysomnography Sleep Staging 4+ Parameters Completed 12/01/2011 23544 Polysomnography Sleep Staging 4+ Parameters Completed 03/24/2011 [id number] Diabetic Foot Exam Completed 09/23/2009 27746 EKG Tracing & Interpretation Completed Encounters Type Date Location Provider Dx Diagnosis Office Visit 10/26/2018 [facility] Emma Merino G43.109 Migraine with aura, 2:40p Medicine M.DJaimie not intractable, w/o status migrainosus Office Visit 01/13/2018 [facility] Kristy Cuello, Z00.00 Encntr for general 4:20p Medicine M.D. adult medical exam w/o abnormal findings R73.01 Impaired fasting glucose Office Visit 08/11/2017 3:20p [facility] Kristy G43.009 Migraine w/ o aura, Amanda Cuello M.D. not intractable, w/o status migrainosus E78.5 Hyperlipidemia, unspecified Office Visit 10/20/2016 3:40p [facility] Rachelle Boland, G43.001 Migraine w/o aura, Medicine N.P. not intractable, with status migrainosus Office Visit 12/27/2014 3:40p [facility] Avery Denney, CLINICAL SERVICES PROFESSIONAL 729.99 Other Disorders Of Medicine Soft Tissue Office Visit 05/02/2014 9:30a [facility] Avery Denney CLINICAL SERVICES PROFESSIONAL 787.01 Nausea W / Vomiting Medicine Office Visit 02/05/2014 3:00p [facility] Natalie Beatty, V70.0 Examination Medicine [facility] V74.1 Screening Examination Pulmonary Tuberculosis Office Visit 09/26/2013 4:00p [facility] Rachelle Boland, 686.9 Local Infection Of Medicine N.P. Skin And Subcutaneous Tissue Unspec Office Visit 09/04/2013 4:20p [facility] Kristy 780.4 Dizziness & Amanda Cuello M.D. Giddiness Office Visit 05/24/2013 11:00a [facility] Kristy 309.9 Adjustment Amanda Cuello M.D. Reaction Unspec V04.81 Need For Prophylactic Vaccination & Inoculation/Influenza Office Visit 01/06/2012 11:00a [facility] Rachelle Boland, 680.8 Carbuncle & Medicine N.P. Furuncle Spec Sites Other Office Visit 12/01/2011 2:00p [facility] Rachelle Boland, 111.1 Tinea Nigra Medicine N.P. 709.9 Skin & Subcutaneous Tissue Disorders Unspec Office Visit 10/08/2011 1:00p [facility] Kristy Cuello, 784.0 Headache Amanda Payne 780.79 Malaise And Fatigue Other Office Visit 08/13/2011 10:20a [facility] Kristy 783.1 Weight Gain Amanda Cuello M.D. Abnormal Office Visit 03/04/2011 11:20a DO Not Use Rachelle Kya, 729.4 Fasciitis Unspec [facility] N.P. Office Visit 06/22/2010 1:45p DO Not Use Kristy 782.0 Skin Sensation Emil Cuello M.D. Disturbance 338.4 Chronic Pain Syndrome 627.9 Menopausal & Postmenopausal Disorder Unspec Office Visit 04/13/2010 10:30a DO Not Use Kristy 723.1 Cervicalgia Patricia-Michael Cuello M.D. 461.9 Sinusitis Acute Unspec Office Visit 09/23/2009 1:15p DO Not Use [facility] AT [facility], 786.59 Pain Chest Fernando Payne Other Office Visit 08/11/2009 8:40a DO Not Use [facility] AT [facility] 729.5 Pain In Limb Fernando Cuello M.D. Office Visit 07/18/2009 10:00a DO Not Use [facility] 729.5 Pain In Limb Fernando Cuello M.D. Office Visit 07/04/2009 10:00a DO Not Use [facility] AT [facility] 729.5 Pain In Limb Fernando Cuello M.D. Office Visit 06/24/2009 9:00a DO Not Use [facility] 354.0 Carpal Tunnel Fernando Cuello M.D. Syndrome Office Visit 06/20/2009 3:15a [facility] Bulmaro Boswell, 789.00 [facility] [place] Unspec Site Hospitalists 575.10 Cholecystitis Unspec 278.00 Obesity Unspec Office Visit 06/19/2009 3:00a [facility] Bulmaro Boswell, 789.00 [facility] [place] Unspec Site Hospitalists Office Visit 06/18/2009 2:45a [facility] Bulmaro Boswell, 789.00 [facility] [place] Unspec Site Hospitalists Office Visit 06/17/2009 1:15a [facility] Guillermina Shin, 789.00 [facility] [place] Unspec Site Hospitalists Office Visit 05/13/2009 2:40p DO Not Use [facility] 729.5 Pain In Limb Fernando Cuello M.D. 465.9 URI Upper Respiratory Infections Acute Unspec Sites Office Visit 04/15/2009 DO Not Use [facility] 729.5 Pain In Limb 4:00p Fernando Cuello M.D. Office Visit 04/03/2009 DO Not Use [facility] 724.5 Backache Unspec 11:00a Fernando Cuello M.D. 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 at [facility] Rgrtioqc04/30/2019 - Kristy Cuello M.D.G43.409 Hemiplegic migraine , not intractable, without status migrainNew Medication:Metoprolol Succinate ER 25 mg - 1 by mouth every dayComments:Try metoprolol [facility] am referring [facility] to [facility] [facility] CenterReferral:Edelmira Gorman M.D., NeurologyFollow up:PE in fall/[id number] Tinea pedisNew Medication:Ketoconazole 2 % - apply thin film to foot twice daily
[2018-12-01 17:53] VITALS: BP 124/78
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
== END 2018-12-01 19:34 | disposition home or self-care (01) ==
LOC: UCEAST 17:29
DX: H66.91 Otitis media, unspecified, right ear (principal); H60.91 Unspecified otitis externa, right ear
CPT/HCPCS: 99212; G0463